=== PATIENT | male | born 1965 | race American Indian/Alaskan Native ===

== ENCOUNTER 2017-03-27 17:40 | Emergency (ER) | payer BC ==
[2017-03-27 17:58] VITALS: BP 137/90; PULSE 80; RESP 18; TEMP 98.2; O2SAT 98
--- NOTE | 2017-03-27 20:21 | ED PDOC ---
HPI: General Adult Time Seen by Provider: 03/27/17 18:06 Chief Complaint (Nursing): Flu-like Symptoms Chief Complaint (Provider): Congestion and cough History Per: Patient History/Exam Limitations: no limitations Onset/Duration Of Symptoms: Days (4) Additional Complaint(s): Patient is a 52 y/o male with no significant past medical history presenting to the emergency department for nasal congestion, runny nose, dry cough, and a hoarse voice ongoing for four days. Denies fever, sore throat, chest pain, rash , nausea, vomiting, diarrhea, flank pain, shortness of breath, recent travel, sick contacts, or other complaints. PCP: Dr. Hobbs Past Medical History Reviewed: Historical Data, Nursing Documentation, Vital Signs Vital Signs: Last Vital Signs Temp 98.2 F 03/27/17 17:56 Pulse 80 03/27/17 17:56 Resp 18 03/27/17 17:56 BP 137/90 03/27/17 17:56 Pulse Ox 98 03/27/17 20:27 - Medical History PMH: No Chronic Diseases - Family History Family History: States: Unknown Family Hx - Social History Current smoker - smoking cessation education provided: No Ex-Smoker (has not smoked in the last 12 months): No Alcohol: None Drugs: Denies - Home Medications Home Medications: Ambulatory Orders Medication Instructions Recorded Ibuprofen [Motrin] 600 mg PO Q6 #20 tab 04/20/16 - Allergies Allergies/Adverse Reactions: Allergies Allergy/AdvReac Type Severity Reaction Status Date / Time No Known Allergies Allergy Verified 03/27/17 17:55 Review of Systems ROS Statement: Except As Marked, All Systems Reviewed And Found Negative Constitutional: Negative for: Fever ENT: Positive for: Nose Discharge (runny nose), Nose Congestion. Negative for: Throat Pain Cardiovascular: Negative for: Chest Pain Respiratory: Positive for: Cough (dry). Negative for: Shortness of Breath Gastrointestinal: Negative for: Nausea, Vomiting, Abdominal Pain, Diarrhea Musculoskeletal: Negative for: Other (flank pain) Skin: Negative for: Rash Physical Exam - Reviewed Nursing Documentation Reviewed: Yes Vital Signs Reviewed: Yes - Physical Exam Comments: GENERAL APPEARANCE: Patient is awake, alert, oriented x 3, in no acute distress. SKIN: Warm, dry; (-) cyanosis, (-) rash. (-) Decubitus Ulcer EYES: (-) conjunctival pallor, (-) scleral icterus, (-) conjunctival hemorrhage. ENMT: Mucous membranes _moist. TMs: (-) erythema. Airway patent: (-) stridor. Pharynx: (-) erythema, (-) exudate. NECK: (-) tenderness, (-) stiffness, (-) meningismus, (-) lymphadenopathy. CHEST AND RESPIRATORY: (-) accessory muscle use. Lungs: (-) rales, (-) rhonchi, (-) wheezes, (-) rub; breath sounds equal bilaterally. HEART AND CARDIOVASCULAR: (-) irregularity; (-) murmur, (-) gallop, (-) rub. ABDOMEN AND GI: Soft; (-) tenderness, (-) guarding; (-) organomegaly; (-) mass ; (-) CVA tenderness. EXTREMITIES: (-) deformity; (-) cellulitis, (-) lymphangitis; (-) subungual hemorrhage; (-) edema. NEURO AND PSYCH: Mental status as above; (-) focal findings. - ECG O2 Sat by Pulse Oximetry: 98 (RA) Pulse Ox Interpretation: Normal Medical Decision Making Medical Decision Makin:15 Based on history and exam, plan will be for outpatient follow up. Patient is diagnosed with laryngitis and given information regarding diagnosis. Instructed patient to remain on bedrest and to consume fluids. Advised to follow up with primary care physician in 1-2 days without fail. Return to the emergency room at any time for any new or worsening symptoms. Patient states he fully agrees with and understands discharge instructions. States that he agrees with the plan and disposition. Verbalized and repeated discharge instructions and plan. I have given the patient opportunity to ask any additional questions. ~ Scribe Attestation: Documented by Aishwarya Anguiano, acting as a scribe for HUNTER Perez. Provider Scribe Attestation: All medical record entries made by the Scribe were at my direction and personally dictated by me. I have reviewed the chart and agree that the record accurately reflects my personal performance of the history, physical exam, medical decision making, and the department course for this patient. I have also personally directed, reviewed, and agree with the discharge instructions and disposition. Disposition - Clinical Impression Clinical Impression: Laryngitis Counseled Patient/Family Regarding: Diagnosis - Disposition Disposition: Routine/Home Disposition Time: 19:15 Condition: STABLE Additional Instructions: Thank you for letting us take care of you today. You were treated for laryngitis. The emergency medical care you received today was directed at your acute symptoms. Rest your voice, drink plenty of fluids. It may take several days for your symptoms to resolve. Return to the Emergency Department if your symptoms worsen, do not improve, or if you have any other problems. Please contact your doctor in 2 days for re-evaluation and follow up. Bring any paperwork you were given at discharge with you along with any medications you are taking to your follow up visit. Our treatment cannot replace ongoing medical care by a primary care provider (PCP) outside of the emergency department. Thank you for allowing the [facility] team to be part of your care today. Instructions: Laryngitis (ED) Forms: [employer] (Maori), [facility] ED School/Work Excuse Print Language: KINYARWANDA - PA / TIRE ASSEMBLER / Resident Statement / has reviewed & agrees with the documentation as recorded.
== END 2017-03-27 20:12 | disposition home or self-care (01) ==
LOC: H.ER 17:40
DX: J04.0 Acute laryngitis (principal); Z87.891 Personal history of nicotine dependence

== ENCOUNTER 2017-07-18 09:27 | Emergency (ER) | payer BC ==
[2017-07-18 09:35] VITALS: BMI 26.9
--- NOTE | 2017-07-18 10:08 | ED PDOC ---
HPI: CCC, URI, Sore Throat Time Seen by Provider: 07/18/17 09:37 Chief Complaint (Nursing): Chest Pain Chief Complaint (Provider): Cold and Cough History Per: Patient History/Exam Limitations: no limitations Onset/Duration Of Symptoms: Days (07/18/17) Current Symptoms Are (Timing): Still Present Associated Symptoms: Cough. denies: Fever, Chills Additional Complaint(s): 52 year old male presents to the ED complaining of cold and cough onset midnight that is worsening. Reports he woke up coughing phlegm. Also has a burning sensation on his chest. Patient has not received a flu shot and is surrounded by sick contacts at work. Denies trouble breathing, shortness of breath, body ache, fever, chills. PMD: No Family Provider Past Medical History Reviewed: Historical Data, Nursing Documentation, Vital Signs Vital Signs: Last Vital Signs Temp 99.5 F 07/18/17 09:35 Pulse 91 H 07/18/17 09:35 Resp 17 07/18/17 09:35 BP 129/83 07/18/17 09:35 Pulse Ox 97 07/18/17 10:10 - Medical History PMH: No Chronic Diseases - Surgical History Surgical History: No Surg Hx - Family History Family History: States: Unknown Family Hx - Social History Current smoker - smoking cessation education provided: No - Home Medications Home Medications: Ambulatory Orders Medication Instructions Recorded Ibuprofen [Motrin] 600 mg PO Q6 #20 tab 04/20/16 guaiFENesin/Dextromethorphan 10 ml PO Q4H #120 ml 07/18/17 [Robitussin DM] - Allergies Allergies/Adverse Reactions: Allergies Allergy/AdvReac Type Severity Reaction Status Date / Time No Known Allergies Allergy Verified 03/27/17 17:55 Review of Systems ROS Statement: Except As Marked, All Systems Reviewed And Found Negative Constitutional: Negative for: Fever, Chills, Other (body ache) Cardiovascular: Positive for: Chest Pain Respiratory: Positive for: Cough. Negative for: Shortness of Breath Physical Exam - Reviewed Nursing Documentation Reviewed: Yes Vital Signs Reviewed: Yes - Physical Exam Appears: Positive for: Well, Non-toxic, No Acute Distress Head Exam: Positive for: ATRAUMATIC, NORMAL INSPECTION, NORMOCEPHALIC Skin: Positive for: Normal Color, Warm, Dry Eye Exam: Positive for: EOMI, Normal appearance, PERRL ENT: Positive for: Normal ENT Inspection Neck: Positive for: Normal, Painless ROM, Supple. Negative for: Decreased ROM Cardiovascular/Chest: Positive for: Regular Rate, Rhythm. Negative for: Murmur Respiratory: Positive for: Normal Breath Sounds. Negative for: Decreased Breath Sounds, Accessory Muscle Use, Respiratory Distress Gastrointestinal/Abdominal: Positive for: Normal Exam, Bowel Sounds, Soft. Negative for: Tenderness, Guarding, Rebound Back: Positive for: Normal Inspection. Negative for: L CVA Tenderness, R CVA Tenderness Extremity: Positive for: Normal ROM. Negative for: Tenderness, Pedal Edema, Deformity Neurologic/Psych: Positive for: Alert, Oriented (x3). Negative for: Motor/ Sensory Deficits - ECG O2 Sat by Pulse Oximetry: 97 (RA) Pulse Ox Interpretation: Normal - Radiology X-Ray: Viewed By Me X-Ray Interpretation: No Acute Disease Medical Decision Making Medical Decision Making: Time: 950 Initial Plan: --EKG --Chest Two Views --Reevaluation Scribe Attestation: Documented by Miriam Marcus, acting as a scribe for Emily Hayden MD Provider Scribe Attestation: All medical record entries made by the Scribe were at my direction and personally dictated by me. I have reviewed the chart and agree that the record accurately reflects my personal performance of the history, physical exam, medical decision making, and the department course for this patient. I have also personally directed, reviewed, and agree with the discharge instructions and disposition. Disposition - Clinical Impression Clinical Impression: URI (upper respiratory infection) - Patient ED Disposition Is Patient to be Admitted: No Doctor Will See Patient In The: Office Counseled Patient/Family Regarding: Diagnosis, Need For Followup, Rx Given - Disposition Referrals: Trang Baltazar [Outside] Disposition: Routine/Home Disposition Time: 11:05 Condition: STABLE Prescriptions: guaiFENesin/Dextromethorphan [Robitussin DM] 10 ml PO Q4H #120 ml Instructions: Viral Upper Respiratory Infection, Adult (DC) Forms: [employer] (Turkish), [facility] ED School/Work Excuse - POA Present On Arrival: None
[2017-07-18] MEDS ORDERED: guaiFENesin DM 200 mg-20 mg/10 ml UD PO STA (11:02)
[2017-07-18] MEDS ORDERED: guaiFENesin 100 mg/5 ml Syrup UD ONE (11:08)
[2017-07-18 11:22] VITALS: BP 134/86; PULSE 96; RESP 15; TEMP 98.5; O2SAT 99
--- NOTE | 2017-07-18 12:29 | RAD ---
HISTORY: cough x3d with chest pain today COMPARISON: Portable chest 04/14/2016. TECHNIQUE: Chest PA and lateral FINDINGS: LUNGS: No active pulmonary disease. PLEURA: No significant pleural effusion identified. No pneumothorax apparent. CARDIOVASCULAR: Normal. OSSEOUS STRUCTURES: No significant abnormalities. VISUALIZED UPPER ABDOMEN: Normal. OTHER FINDINGS: None. IMPRESSION: No interval acute cardiopulmonary disease appreciated.
--- NOTE | 2017-07-19 10:38 | CARD ---
APPROVED REPORT EKG Measurement Heart [id number] <Conclusion> Normal sinus rhythm Nonspecific T wave abnormality Abnormal ECG
== END 2017-07-18 11:20 | disposition home or self-care (01) ==
LOC: H.ER 09:27
DX: J06.9 Acute upper respiratory infection, unspecified (principal)